=== PATIENT | female | born 1970 | race Caucasian/White ===

== ENCOUNTER → 2020-04-22 | Day surgery (SDC) | payer OTHER ==
[2020-04-20 09:54] VITALS: BMI 28.3
[~2020-04-22] MED LIST: ACETAMINOPHEN TAB 500 MG TAB PO ONE; BUPIVACAINE (PF) 0.25% 30 ML VIAL SQ ONE; DEXAMETHASONE SOD PHOSPHATE 4 MG/ML 1 ML VIAL IVP ONE; HEPARIN SODIUM,PORCINE 5,000 UNIT/ML 1 ML VIAL SQ ONE; HYDROcodone/APAP 5-325MG 1 EACH TAB PO PRN; HYDROcodone/APAP 7.5-325MG 1 EACH TAB ONE; HYDROcodone/APAP 7.5-325MG 1 EACH TAB PO ONE; HYDROmorphone 0.5 MG/0.5 ML SYRINGE IVP ONE; HYDROmorphone 0.5 MG/0.5 ML SYRINGE IVP PRN; LACTATED RINGERS 1,000 ML IV ONE; NALOXONE 0.4 MG/ML 1 ML VIAL IV PRN; ONDANSETRON 4 MG/2 ML VIAL IVP ONE; ONDANSETRON 4 MG/2 ML VIAL ONE; Pre Op ABX Message 1 EACH MISC MISCELLANE ONE
[2020-04-22 08:13] VITALS: RESP 16
--- NOTE | 2020-04-22 09:44 | P.GSHP ---
History of Present Illness H&P Date: 04/22/20 Chief Complaint: left shoulder lipoma 50-year-old female seen in the office about a month ago. Patient complaining of left shoulder left neck and left upper back pain. Patient has a palpable mass in that area and believes the pain is coming from that. Recent MRI showed no subcutaneous abnormalities per dictation. Past Medical History Past Medical History: Asthma Additional Past Medical History / Comment(s): ASTHMA- CHILDHOOD , LEFT SHOULDER PAIN History of Any Multi-Drug Resistant Organisms: None Reported Past Surgical History: Breast Surgery, Section, Uterine Ablation Additional Past Surgical History / Comment(s): C SECTION X3, BLADDER REPAIR, BREAST BIOPSY, LEFT OVARY REMOVED , LAPAROSCOPIC SURGERY, NECK SURGERY WITH GRAFT , Past Anesthesia/Blood Transfusion Reactions: No Reported Reaction Smoking Status: Current some day smoker - Past Family History Mother Family Medical History: Cancer Additional Family Medical History / Comment(s): COLON CANCER Brother(s) Family Medical History: Cancer Additional Family Medical History / Comment(s): ESOPHAGUS CANCER Sister(s) Family Medical History: Cancer Additional Family Medical History / Comment(s): OVARIAN CANCER Medications and Allergies Home Medications Medication Instructions Recorded Confirmed Type Gabapentin [Neurontin] 800 mg PO TID 04/20/20 04/20/20 History HYDROcodone/APAP 7.5-325MG [Blanco 1 tab PO BID PRN 04/20/20 04/20/20 History 7.5-325] Naproxen [Naprosyn] 500 mg PO BID 04/20/20 04/20/20 History Allergies Allergy/AdvReac Type Severity Reaction Status Date / Time No Known Allergies Allergy Verified 04/22/20 08:01 Surgical - Exam Vital Signs Temp Pulse Resp BP Pulse Ox 97.9 F 56 L 16 123/85 93 L 04/22/20 08:11 04/22/20 08:11 04/22/20 08:11 04/22/20 08:11 04/22/20 08:11 Physical exam: General: Well-developed, well-nourished HEENT: Normocephalic, sclerae nonicteric Abdomen: Nontender, nondistended Extremities: No edema, left upper back lipoma 2 x 3 cm mildly tender Neuro: Alert and oriented Assessment and Plan (1) Lipoma of left shoulder Narrative/Plan: We'll proceed with surgical excision at this time. Risks of bleeding, infection, persistent pain, numbness, nerve injury, recurrence reviewed. She understands and wishes to proceed. Current Visit: Yes Status: Acute Code(s): D17.22 - BENIGN LIPOMATOUS NEOPLASM OF SKIN, SUBCU OF LEFT ARM SNOMED Code(s): 015016995
--- NOTE | 2020-04-22 10:30 | P.OP ---
Date of Procedure: 04/22/20 Procedure(s) Performed: PREOPERATIVE DIAGNOSIS: Left shoulder lipoma POSTOPERATIVE DIAGNOSIS: Same PROCEDURE: Excision left shoulder lipoma with intermediate closure SURGEON: Seng EBL: 5 mL ANESTHESIA: Gen. COMPLICATIONS: None OPERATIVE PROCEDURE: A place never table in the right decubitus position. The l eft posterior shoulder was prepped and draped sterilely. The patient had a palpable mass there. A horizontal incision was made overlying the palpable mass. The mass was fully excised with the use of electrocautery. This was lipomatous in nature. This measured 4 x 3 cm. This was sent to pathology. Subcutaneous tissues were inspected. No bleeding was seen. Subcutaneous tissues closed using #3-0 Vicryl sutures. Skin closed using a running 4-0 Monocryl suture. Skin glue and sterile dressings applied. DISPOSITION: Stable to recovery room
[2020-04-22 10:39] VITALS: TEMP 97
[2020-04-22 11:30] VITALS: BP 106/61; PULSE 100
== END ==
LOC: OR 07:43
PROVIDERS: ATTEND Surgery
DX: D17.22 Benign lipomatous neoplasm of skin and subcutaneous tissue of left arm (principal); J45.909 Unspecified asthma, uncomplicated; F17.200 Nicotine dependence, unspecified, uncomplicated; Z80.0 Family history of malignant neoplasm of digestive organs; Z80.41 Family history of malignant neoplasm of ovary; Z98.891 History of uterine scar from previous surgery; Z90.721 Acquired absence of ovaries, unilateral; Z98.890 Other specified postprocedural states; Z79.1 Long term (current) use of non-steroidal anti-inflammatories (NSAID); Z79.899 Other long term (current) drug therapy
CPT/HCPCS: 81025; 88304; 23071; J1644; J1100; J2405; J1170